=== PATIENT | female | born 1965 | race American Indian/Alaskan Native ===

== ENCOUNTER 2022-02-14 09:16 | Inpatient (IN) | payer SELFPAY ==
[2022-02-14] MEDS ORDERED: SODIUM CHLORIDE 0.9% 1000 ML 1,000 ML ONE ×2 (09:20→14:50)
[2022-02-14] MEDS ORDERED: ADENOSINE 6 MG/2 ML INJ ONE ×2 (09:20→14:50)
[2022-02-14] MEDS ORDERED: SODIUM CHLORIDE 0.9% 1000 ML 1,000 ML IV ONE ×2 (09:27→11:09)
[2022-02-14] MEDS ORDERED: ASPIRIN 81 MG TAB CHEW PO ONE (09:27)
[2022-02-14] MEDS ORDERED: ADENOSINE 6 MG/2 ML INJ IV ONE ×4 (09:27→15:05)
--- NOTE | 2022-02-14 09:27 | Emergency Department Report ---
ED Palpitations [facility] - General Stated Complaint: PALPITATIONS Time Seen by Provider: 02/14/22 09:24 - History of Present Illness Initial Comments: This is a 57-year-old female presents emergency department with complaint of palpitations and fatigue. Patient states she noticed her heart rate was elevated this morning after getting out of the shower. Patient works at a daycare behind the hospital. Patient called 911 and EMS arrived and noted patient was in SVT with a rate above 160. They attempted to have patient Valsalva with no improvement of patient's symptoms. Patient reports that this is happened once before. She has not yet seen cardiology. She also has history of diabetes and was noted to be hyperglycemic in the 300s. - Related Data Allergies Allergy/AdvReac Type Severity Reaction Status Date / Time No Known Allergies Allergy Verified 02/14/22 09:18 ED Review of Systems ROS: Stated complaint: PALPITATIONS Other details as noted in HPI ED Physical Exam - General General appearance: alert, anxious, in distress - Head Head exam: Present: atraumatic, normocephalic - Eye Eye exam: Present: normal appearance - ENT ENT exam: Present: mucous membranes moist - Neck Neck exam: Present: normal inspection - Respiratory Respiratory exam: Present: normal lung sounds bilaterally. Absent: respiratory distress - Cardiovascular Cardiovascular Exam: Present: tachycardia. Absent: systolic murmur, diastolic murmur, rubs, gallop - GI/Abdominal GI/Abdominal exam: Present: soft. Absent: distended, tenderness - Rectal Rectal exam: Present: deferred - Extremities Exam Extremities exam: Present: normal inspection - Back Exam Back exam: Present: normal inspection - Neurological Exam Neurological exam: Present: alert, oriented X3 - Psychiatric Psychiatric exam: Present: normal affect, normal mood - Skin Skin exam: Present: warm, dry, intact, normal color. Absent: rash ED Course Vital Signs 02/14/22 02/14/22 02/14/22 09:29 09:30 09:45 Pulse Rate 160 H 159 H 158 H Respiratory 16 14 12 Rate Blood Pressure 92/63 O2 Sat by Pulse 97 Oximetry 02/14/22 02/14/22 02/14/22 10:00 11:00 12:00 Pulse Rate 156 H 69 62 Respiratory 13 24 13 Rate Blood Pressure 89/61 116/63 116/63 O2 Sat by Pulse 99 96 94 Oximetry 02/14/22 02/14/2202/14/22 13:00 14:46 15:00 Pulse Rate 60 160 H 167 H Respiratory 20 14 15 Rate Blood Pressure 116/63 116/63 109/74 O2 Sat by Pulse 95 Oximetry 02/14/22 02/14/22 15:09 16:00 Pulse Rate 166 H 159 H Respiratory 22 Rate Blood Pressure 109/74 116/63 O2 Sat by Pulse Oximetry - Reevaluation(s) Reevaluation #1: 02/14/22 10:14 We attempted as an adenosine. Patient was given 6 mg initially with out improvement of her heart rate. She was then given 2 subsequent doses of 12 mg each. This still did not improve her heart rate. I discussed cardioversion and with a dose of etomidate and at this time patient does not wish to undergo this. Currently patient's blood pressure is in the 90s over 60s with a MAP of 70. Patient is mentating fine. She has been given IV fluids given concern for dehydration and hyperglycemia. We also attempted carotid massage x2, multiple episodes of Valsalva by patient which has not fixed her heart rate. Given that patient has not yet consented although it was offered for cardioversion plan for reassessment in 10 to 15 minutes after additional IV fluids. Reevaluation #2: 02/14/22 10:34 Patient appears to have converted to sinus rhythm. However patient did have episode of significant bradycardia. Patient bradycardia down into the 50s and was extremely symptomatic. Patient's heart rate has since improved into the 80s to 90s. We are getting an EKG to confirm that she could be in sinus rhythm. Given that a prolonged pauses and the hypotension I do think that patient will require admission for observation and possible cardiology allergy consultation. Reevaluation #3: 02/14/22 13:25 Patient feels improved. Reevaluation #4: 02/14/22 14:53 Patient is noted to be back in SVT. Plan to give a dose of adenosine. If adenosine does not work this time will give a dose of beta-jaun given patient's blood pressure should be able to handle it. If no improvement will discuss again with cardiology. 02/14/22 15:34 I once again discussed once again with Dr. Zaman. He recommends that we start patient on amiodarone. Reevaluation #5: 02/14/22 16:27 Patient is currently in normal sinus rhythm. Patient is admitted to the ICU. She is status post the amiodarone bolus. - Consultations Consultation #1: 02/14/22 14:[address] Zaman who recommended admission with echocardiogram. He will consult. ED Medical Decision Making - Lab Data Result diagrams: 02/14/22 10:08 02/14/22 10:08 - EKG Data -: EKG Interpreted by Me - EKG Data 02/14/22 10:41 SVT is noted with borderline ST elevations. Rate is 161. Time of EKG is 9:25 AM. 02/14/22 13:25 Repeat EKG performed at 11:00 AM shows normal sinus rhythm at a rate of 70. 02/14/22 15:36 Patient once again appears to be in SVT. Patient has EKG performed at 1534 that shows SVT at a rate of 159. - Medical Decision Making Briefly patient is a 57-year-old female with history of SVT who appears to be in SVT currently. Plan for EKG, basic labs including electrolytes, thyroid testing. Plan for chest x-ray. Patient also has history of diabetes and has elevated blood sugar. Will give IV fluids for hyperglycemia but will evaluate further for DKA versus HHS. Critical care attestation.: If time is entered above; I have spent that time in minutes in the direct care of this critically ill patient, excluding procedure time. ED Disposition Clinical Impression: SVT (supraventricular tachycardia) Disposition: ADMITTED INPATIENT Is pt being admited?: Yes Does the pt Need Aspirin: Yes Condition: Critical Referrals: PRIMARY CARE, [Primary Care Provider] - 3-5 Days
[2022-02-14] MEDS ORDERED: ONDANSETRON 4 MG/2 ML INJ ONE (10:24)
--- NOTE | 2022-02-14 10:43 | XRay Report ---
CHEST 1 VIEW 02/14/2022 10:01 AM INDICATION / CLINICAL INFORMATION: Chest Pain. COMPARISON: 06/05/2000 and FINDINGS: SUPPORT DEVICES: None. HEART / MEDIASTINUM: No significant abnormality. LUNGS / PLEURA: Mild increased interstitial prominence with increased pulmonary vascularity within th e lungs No pneumothorax. Signer Name: Jayce Hodges MD Signed: 02/14/2022 10:38 AM Workstation Name: [id number]
[2022-02-14 10:56] LABS: Basophils % (Auto) 0.5 % (0.0-1.8); Eosinophils # (Auto) 0.1 K/mm3 (0.0-0.4); Eosinophils % (Auto) 0.8 % (0.0-4.3); Hematocrit 39.8 % (30.3-42.9); Hemoglobin 13.1 gm/dl (10.1-14.3); Lymphocytes # (Auto) 1.3 K/mm3 (1.2-5.4); Lymphocytes % (Auto) 16.3 % (13.4-35.0); Mean Corpuscular HGB Conc 33 % (30-34); Mean Corpuscular Volume 87 fl (79-97); Monocytes # (Auto) 0.5 K/mm3 (0.0-0.8); Monocytes % (Auto) 6.2 % (0.0-7.3); Platelet Count 142 K/mm3 (140-440); Red Blood Count 4.57 M/mm3 (3.65-5.03); Red Cell Distribution Width 12.6 % (13.2-15.2)
[2022-02-14] MEDS ORDERED: ONDANSETRON 4 MG/2 ML INJ IV ONE (11:09)
[2022-02-14 11:27] LABS: Alanine Aminotransferase 21 units/L (7-56); Albumin 3.4 g/dL (3.9-5); BUN/Creatinine Ratio 21; Blood Urea Nitrogen 17 mg/dL (7-17); Calcium 8.1 mg/dL (8.4-10.2); Hemolysis Index 7
[2022-02-14] MEDS ORDERED: MAGNESIUM SULFATE 2 GM/50 ML BAG IV ONE (11:29)
[2022-02-14] MEDS ORDERED: ASPIRIN 81 MG TAB CHEW ONE (11:59)
[2022-02-14] MEDS ORDERED: METOPROLOL TARTRATE 5 MG/5 ML INJ IV ONE ×2 (15:00→15:06)
[2022-02-14] MEDS ORDERED: oxyCODONE /ACETAMINOPHEN 5-325MG TAB PO PRN (15:57)
[2022-02-14] MEDS ORDERED: HYDROmorphone 0.5 MG/0.5 ML INJ IV PRN (15:57)
[2022-02-14] MEDS ORDERED: ACETAMINOPHEN 325 MG TAB PO PRN (15:57)
--- NOTE | 2022-02-14 15:57 | History and Physical Report ---
History of Present Illness Chief complaint: My heart is just pounding History of present illness: 57 YO Female with SVT, Medication Noncompliance, HTN, Obesity, DM, Metabolic Syndrome presents ED for evaluation. Patient reports "my heart is pounding". Patient states that she has experienced a rapid heartbeat that began this morning after getting out of the shower. Patient knowledges weakness, decreased exercise tolerance, dyspnea on exertion as well as dyspnea at rest. EMS was notified and upon arrival the patient was found to be in distress with EKG findings revealing supraventricular tachycardia with a heart rate above 160. A Valsalva maneuver was attempted as well as medical cardioversion with adenosine without success. The patient was subsequent transported to [facility] for further care and evaluation of the aforementioned symptoms. The patient was seen and evaluated in the emergency department. All lab and imaging studies reviewed. Patient found to have supraventricular tachycardia as well as clinical symptoms consistent with CHF decompensation. The patient was treated with repeat medical cardioversion in the emergency department without success. Cardiology team consulted. Patient initiated on amiodarone and admitted to ICU due to increased risk of worsening symptoms and for medical stabilization. Patient denies fever, chills, productive cough, skin rash, recent contact, known exposu re to COVID-19. No prior admission for review. No medication listed at time of admission for reconciliation. Advanced care planning conducted in ED. Past History Past Medical History: arrhythmia, diabetes, hypertension, other (See HPI) Past Surgical History: No surgical history, Other (Reviewed) Social history: , lives with family. denies: smoking, alcohol abuse, prescription drug abuse Family history: diabetes, hypertension Medications and Allergies Allergies Allergy/AdvReac Type Severity Reaction Status Date / Time No Known Allergies Allergy Verified 02/14/22 09:18 Active Meds: Active Medications Amiodarone HCl 300 mg/ (Dextrose) 100 mls @ 300 mls/hr IV ONCE ONE Stop: 02/14/22 16:19 Amiodarone HCl 900 mg/ (Dextrose) 500 mls @ 33.333 mls/hr IV DIRECT CASSI; Protocol Review of Systems Constitutional: weakness, no weight loss, no weight gain, no fever, no chills Ears, nose, mouth and throat: no ear pain, no ear discharge, no decreased hearing, no nose pain, no nasal congestion, no sinus pressure Breasts: no change in shape, no swelling, no mass Cardiovascular: palpitations, dyspnea on exertion, decreased exercise tolerance, no chest pain Respiratory: no cough, no cough with sputum, no excessive sputum, no hemoptysis Gastrointestinal: no abdominal pain, no vomiting, no diarrhea Genitourinary Female: no pelvic pain, no flank pain, no dysuria, no urinary frequency, no urgency, no stress incontinence Rectal: no pain, no incontinence, no bleeding Musculoskeletal: no neck stiffness, no neck pain, no arm numbness/tingling, no low back pain, no leg numbness/tingling Integumentary: no rash, no pruritis, no redness, no wounds, no jaundice Neurological: no head injury, no transient paralysis, no weakness, no parathesias, no numbness, no seizures Psychiatric: no anxiety, no change in sleep habits, no sleep disturbances, no insomnia Endocrine: no cold intolerance, no heat intolerance, no polyphagia, no excessive thirst, no polyuria Hematologic/Lymphatic: no easy bruising, no lymphadenopathy Allergic/Immunologic: no allergic rhinitis, no wheezing, no persistent infections, no anaphylaxis Exam - Constitutional Vitals: Temp Pulse Resp BP Pulse Ox 166 H 13 109/74 94 02/14/22 15:09 02/14/22 12:00 02/14/22 15:09 02/14/22 12:00 General appearance: Present: mild distress, obese - EENT Eyes: Present: PERRL ENT: hearing intact, clear oral mucosa - Neck Neck: Present: supple, normal ROM - Respiratory Respiratory effort: normal Respiratory: bilateral: diminished - Cardiovascular Rhythm: irregularly irregular Heart Sounds: Present: S1 & S2. Absent: rub, click - Extremities Extremities: pulses symmetrical, No edema Peripheral Pulses: within normal limits - Abdominal General gastrointestinal: Present: soft, non-tender, non-distended, normal bowel sounds Female genitourinary: Present: normal - Integumentary Integumentary: Present: clear, warm, dry - Musculoskeletal Musculoskeletal: gait normal, strength equal bilaterally - Psychiatric Psychiatric: appropriate mood/affect, intact judgment & insight - Neurologic Neurologic: CNII-XII intact, moves all extremities HEART Score - HEART Score Troponin: Troponin T < 0.010 ng/mL (0.00-0.029) 02/14/22 13:09 Results - Labs CBC & Chem 7: 02/14/22 10:08 07/05/22 10:08 Labs: Abnormal lab results 02/14/22 02/14/22 02/14/22 Range/Units 10:08 10:08 10:08 RDW 12.6 L (13.2-15.2) % Seg Neutrophils % 76.2 H (40.0-70.0) % VBG pH 7.275 L (7.320-7.420) Glucose 364 H (65-100) mg/dL Calcium 8.1 L (8.4-10.2) mg/dL Magnesium (1.7-2.3) mg/dL Total Protein 6.2 L (6.3-8.2) g/dL Albumin 3.4 L (3.9-5) g/dL 02/14/22 Range/Units 10:08 RDW (13.2-15.2) % Seg Neutrophils % (40.0-70.0) % VBG pH (7.320-7.420) Glucose (65-100) mg/dL Calcium (8.4-10.2) mg/dL Magnesium 1.60 L (1.7-2.3) mg/dL Total Protein (6.3-8.2) g/dL Albumin (3.9-5) g/dL Assessment and Plan - Patient Problems (1) SVT (supraventricular tachycardia) Current Visit: Yes Status: Acute Plan to address problem: Patient treated with medical cardioversion in the emergency department with out improvement. Patient heart rate remained in the 160s. Cardiology team consulted. Patient initiated on amiodarone drip and admitted to ICU for medical stabilization. Titrate to heart rate less than 1 The high probability of a clinically significant, sudden or life threatening deterioration of the [cardiac, pulmonary] system(s) required my full and direct attention, intervention and personal management. The aggregate critical care time was [65] minutes. This time is in addition to time spent performing reported procedures but includes the following: [x] Data Review and interpretation [x] Patient assessment and monitoring of vital signs [x] Documentation [x] Medication orders and [id number] bpm. Echocardiogram ordered and pending at time of admission. (2) Diastolic CHF Current Visit: Yes Status: Acute Qualifiers: Heart failure chronicity: acute Qualified Code(s): I50.31 - Acute diastolic (congestive) heart failure Plan to address problem: Strict I's and O, monitor urine output every shift, daily weight, afterload reduction, echocardiogram ordered and pending at time of admission, blood pressure control. Thyroid panel, magnesium level. Cardiology team consulted. (3) Diabetes Current Visit: Yes Status: Acute Plan to address problem: Consistent carbohydrate diet, Accu-Chek, insulin protocol, hypoglycemia protocol. (4) HTN (hypertension) Current Visit: Yes Status: Acute Qualifiers: Hypertension type: primary hypertension Qualified Code(s): I10 - Essential (primary) hypertension Plan to address problem: Monitor blood pressure every shift, continue medical management. Blood pressure monitoring as per nursing care protocol. (5) Obesity hypoventilation syndrome Current Visit: Yes Status: Acute Plan to address problem: Balanced diet, increase physical activity discharge, outpatient pulmonary follow-up for sleep study. (6) Metabolic syndrome Current Visit: Yes Status: Acute Plan to address problem: Patient counseled regarding balanced diet, weight reduction, increase physical activity discharge, low-cholesterol diet. (7) DVT prophylaxis Current Visit: Yes Status: Acute Plan to address problem: SCD to bilateral lower extremities while in bed (8) Advance care planning Current Visit: Yes Status: Acute Plan to address problem: Disease education data, care plan discussed, diagnosis discussed, prognosis discussed, patient is full code. Patient knowledges understanding agreement with care plan, +30 minutes. (9) Preventative health care Current Visit: Yes Status: Acute Plan to address problem: Patient counseled regarding meal planning, weight reduction, increased physical activity discharge, outpatient follow-up with primary care physician regarding all age and risk factor appropriate screening test. Patient instructed to follow-up with echocardiography radiology technologist for routine monitoring. +30 minutes.
[2022-02-14] MEDS ORDERED: DEXTROSE 5% IV ONE (16:00)
[2022-02-14] MEDS ORDERED: AMIODARONE 900 MG in DEXTROSE 5% IN WATER 482 ML IV SCH (16:00)
[2022-02-14] MEDS ORDERED: AMIODARONE IV ONE (16:00)
[2022-02-14] MEDS ORDERED: WATER IV ONE (16:00)
--- NOTE | 2022-02-14 18:27 | Consultation ---
History of Present Illness Consult date: 02/14/22 Consult reason: tachycardia History of present illness: The patient is a 57-year-old woman who presented to the emergency room with palpitations, ECG was consistent with an AV node reentry tachycardia at 160. She apparently failed treatment with 6 to 12 mg of adenosine, but during her emergency room course spontaneously reverted to sinus rhythm. While she was being evaluated and assessed for hospital admission, she again developed a recurrent of the SVT, which again reportedly did not respond to adenosine therapy, we recommended administration of intravenous amiodarone. The patient is currently in stable sinus rhythm, asymptomatic in the emergency room on amiodarone drip. The twelve-lead EKG in sinus rhythm is normal, with early repolarization changes, no acute ischemic changes. Patient gives a history of recurrent SVT, starting in 2003. Her most recent episode was 2 months ago, she was treated at [facility] in [place], and was subsequently discharged on metoprolol. She admits to noncompliant follo w-up with her airplane electrical repairer, and also reports that in the 2 days prior to this event, has been noncompliant with metoprolol. Laboratory values show negative troponin levels, but markedly elevated random glucose of 364. Chest x-ray shows normal-sized cardiac silhouette and clear lungs. Past History Past Medical History: other (Supraventricular tachycardia) Medications and Allergies Allergies Allergy/AdvReac Type Severity Reaction Status Date / Time No Known Allergies Allergy Verified 02/14/22 09:18 Active Meds: Active Medications Acetaminophen (Acetaminophen 325 Mg Tab) 650 mg PO Q6H PRN PRN Reason: Pain MILD(1-3)/Fever >100.5/GRAMAJO Hydromorphone HCl (Hydromorphone 0.5 Mg/0.5 Ml Inj) 0.5 mg IV Q13H PRN PRN Reason: Pain , Severe (7-10) Amiodarone HCl 900 mg/ (Dextrose) 500 mls @ 33.333 mls/hr IV DIRECT CASSI; Protocol Oxycodone/Acetaminophen (Oxycodone /Acetaminophen 5-325mg Tab) 1 tab PO Q6H PRN PRN Reason: Pain, Moderate (4-6) Sodium Chloride (Sodium Chloride 0.9% 10 Ml Flush Syringe) 10 ml IV BID CASSI Sodium Chloride (Sodium Chloride 0.9% 10 Ml Flush Syringe) 10 ml IV PRN PRN PRN Reason: LINE FLUSH Review of Systems Cardiovascular: palpitations, rapid/irregular heart beat, shortness of breath, no chest pain, no orthopnea, no edema, no syncope, no lightheadedness Physical Examination Vital Signs Pulse Resp Pulse Ox 160 H 16 97 02/14/22 09:29 02/14/22 09:29 02/14/22 09:29 General appearance: no acute distress HEENT: Positive: PERRL Neck: Positive: neck supple Cardiac: Positive: Reg Rate and Rhythm Lungs: Positive: clear to auscultation Neuro: Positive: Grossly Intact Abdomen: Positive: Soft Female genitourinary: deferred Skin: Positive: Clear Extremities: Absent: edema Results 02/14/22 10:08 02/14/22 10:08 Cardiac Enzymes 02/14/22 Range/Units 10:08 AST 24 (5-40) units/L CBC 02/14/22 Range/Units 10:08 WBC 8.0 (4.5-11.0) K/mm3 RBC 4.57 (3.65-5.03) M/mm3 Hgb 13.1 (10.1-14.3) gm/dl Hct 39.8 (30.3-42.9) % Plt Count 142 (140-440) K/mm3 Lymph # (Auto) 1.3 (1.2-5.4) K/mm3 [place] # (Auto) 0.5 (0.0-0.8) K/mm3 Eos # (Auto) 0.1 (0.0-0.4) K/mm3 Baso # (Auto) 0.0 (0.0-0.1) K/mm3 Comprehensive Metabolic Panel 02/14/22 Range/Units 10:08 Sodium 137 (137-145) mmol/L Potassium 4.9 (3.6-5.0) mmol/L Chloride 104.1 (98-107) mmol/L Carbon Dioxide 24 (22-30) mmol/L BUN 17 (7-17) mg/dL Creatinine 0.8 (0.6-1.2) mg/dL Glucose 364 H (65-100) mg/dL Calcium 8.1 L (8.4-10.2) mg/dL AST 24 (5-40) units/L ALT 21 (7-56) units/L Alkaline Phosphatase 75 (35-129) units/L Total Protein 6.2 L (6.3-8.2) g/dL Albumin 3.4 L (3.9-5) g/dL EKG interpretations - Telemetry EKG Rhythm: SVT Assessment and Plan - Patient Problems (1) SVT (supraventricular tachycardia) Current Visit: Yes Status: Acute Plan to address problem: Patient presents with recurrence of AV node reentry tachycardia. Due to reported failure of adenosine administered in the emergency room, patient is currently on amiodarone, stable sinus rhythm. Sinus rhythm EKG is normal. We will restart metoprolol, and plan on discharge tomorrow on combination of metoprolol and low-dose amiodarone, with outpatient follow-up by her primary airplane electrical repairer. Patient is aware of alternative treatments such as SVT ablation that can be considered electively in the setting of failed medical therapy.
[2022-02-14] MEDS ORDERED: DEXTROSE 50% IN WATER (25GM) 50 ML SYRINGE IV PRN (18:46)
[2022-02-14 19:24] LABS: Free T4 (Free Thyroxine) 1.22 ng/dL (0.76-1.46)
[2022-02-15 04:44] LABS: Basophils % (Auto) 0.5 % (0.0-1.8); Eosinophils # (Auto) 0.2 K/mm3 (0.0-0.4); Eosinophils % (Auto) 2.2 % (0.0-4.3); Hemoglobin 12.4 gm/dl (10.1-14.3); Lymphocytes # (Auto) 2.1 K/mm3 (1.2-5.4); Lymphocytes % (Auto) 30.4 % (13.4-35.0); Mean Corpuscular HGB Conc 33 % (30-34); Mean Corpuscular Volume 86 fl (79-97); Monocytes # (Auto) 0.7 K/mm3 (0.0-0.8); Monocytes % (Auto) 9.9 % (0.0-7.3); Platelet Count 140 K/mm3 (140-440); Red Blood Count 4.32 M/mm3 (3.65-5.03); Red Cell Distribution Width 12.8 % (13.2-15.2)
[2022-02-15 05:16] LABS: Alanine Aminotransferase 29 units/L (7-56); Albumin 3.4 g/dL (3.9-5); BUN/Creatinine Ratio 19; Blood Urea Nitrogen 15 mg/dL (7-17); Calcium 8.6 mg/dL (8.4-10.2); Hemolysis Index 12
[2022-02-15] MEDS ORDERED: METOPROLOL TARTRATE 25 MG TAB PO SCH (12:00)
[2022-02-15] MEDS: INSULIN LISPRO 100 UNIT/ML SUB-Q SCH ×4 (12:19→22:24)
--- NOTE | 2022-02-15 13:14 | Progress Note ---
Assessment and Plan - Patient Problems (1) SVT (supraventricular tachycardia) Current Visit: Yes Status: Acute Plan to address problem: Patient presents with recurrence of AV node reentry tachycardia. Due to reported failure of adenosine administered in the emergency room, patient is currently on amiodarone, stable sinus rhythm. Sinus rhythm EKG is normal. Echocardiogram shows normal left ventricular systolic function, ejection fraction 55%. We will restart metoprolol, and plan on discharge tomorrow on combination of metoprolol and low-dose amiodarone, with outpatient follow-up by her primary high school social studies teacher. Patient is aware of alternative treatments such as SVT ablation that can be considered electively in the setting of failed medical therapy. Subjective Date of service: 02/15/22 Principal diagnosis: SVT Interval history: Patient is comfortable, no acute distress, no cardiac complaints. Stable sinus rhythm. Objective Vital Signs Temp Pulse Resp BP BP Pulse Ox 02/15/22 12:10 98.5 F 64 18 105/57 97 02/15/22 08:10 97 02/15/22 08:00 58 L 02/15/22 07:38 97.7 F 63 18 94/52 96 02/15/22 04:52 97.6 F 58 L 18 116/65 99 02/15/22 01:38 97 02/15/22 01:10 58 L 19 84/48 95 02/15/22 01:00 57 L 20 83/40 95 02/15/22 00:50 58 L 19 83/40 96 02/15/22 00:47 98.8 F 56 L 20 108/70 02/15/22 00:40 57 L 20 77/38 94 02/15/22 00:38 58 L 20 77/38 95 02/15/22 00:00 59 L 20 89/46 94 02/14/22 23:00 59 L 20 90/57 94 02/14/22 22:00 59 L 21 96/61 93 02/14/22 21:00 57 L 19 108/75 94 02/14/22 20:00 59 L 18 90/59 02/14/22 19:00 61 20 90/59 02/14/22 18:00 62 17 90/59 02/14/22 17:00 65 18 90/59 02/14/22 16:00 159 H 22 116/63 02/14/22 15:09 166 H 109/74 02/14/22 15:00 167 H 15 109/74 02/14/22 14:46 160 H 14 116/63 - Physical Examination General: Appears Well, No Apparent Distress HEENT: Positive: PERRL Neck: Positive: neck supple Cardiac: Positive: Reg Rate and Rhythm Lungs: Positive: clear to auscultation Neuro: Positive: Grossly Intact Abdomen: Positive: Soft Skin: Positive: Clear Extremities: Absent: edema - Labs and Meds Cardiac Enzymes 02/15/22 Range/Units 04:05 AST 27 (5-40) units/L CBC 02/15/22 Range/Units 04:05 WBC 6.9 (4.5-11.0) K/mm3 RBC 4.32 (3.65-5.03) M/mm3 Hgb 12.4 (10.1-14.3) gm/dl Hct 37.0 (30.3-42.9) % Plt Count 140 (140-440) K/mm3 Lymph # (Auto) 2.1 (1.2-5.4) K/mm3 [place] # (Auto) 0.7 (0.0-0.8) K/mm3 Eos # (Auto) 0.2 (0.0-0.4) K/mm3 Baso # (Auto) 0.0 (0.0-0.1) K/mm3 Comprehensive Metabolic Panel 02/15/22 Range/Units 04:05 Sodium 138 (137-145) mmol/L Potassium 4.2 (3.6-5.0) mmol/L Chloride 104.9 (98-107) mmol/L Carbon Dioxide 24 (22-30) mmol/L BUN 15 (7-17) mg/dL Creatinine 0.8 (0.6-1.2) mg/dL Glucose 241 H (65-100) mg/dL Calcium 8.6 (8.4-10.2) mg/dL AST 27 (5-40) units/L ALT 29 (7-56) units/L Alkaline Phosphatase 77 (35-129) units/L Total Protein 6.3 (6.3-8.2) g/dL Albumin 3.4 L (3.9-5) g/dL
--- NOTE | 2022-02-15 13:32 | Consultation ---
History of Present Illness Consult date: 02/15/22 History of present illness: 57 YO Female with SVT, Medication Noncompliance, HTN, Obesity, DM, Metabolic Syndrome presents ED for evaluation. Patient reports "my heart is pounding". Patient states that she has experienced a rapid heartbeat that began this morning after getting out of the shower. Patient knowledges weakness, decreased exercise tolerance, dyspnea on exertion as well as dyspnea at rest. EMS was notified and upon arrival the patient was found to be in distress with EKG findings revealing supraventricular tachycardia with a heart rate above 160. A Valsalva maneuver was attempted as well as medical cardioversion with adenosine without success. The patient was subsequent transported to [facility] for further care and evaluation of the aforementioned symptoms. The patient was seen and evaluated in the emergency department. All lab and imaging studies reviewed. Patient found to have supraventricular tachycardia as well as clinical symptoms consistent with CHF decompensation. The patient was treated with repeat medical cardioversion in the emergency department without success. Cardiology team consulted. Patient initiated on amiodarone and admitted to ICU due to increased risk of worsening symptoms and for medical stabilization. Patient denies fever, chills, productive cough, skin rash, recent contact, known exposure to COVID-19. No prior admission for review. No medication listed at time of admission for reconciliation. Advanced care planning conducted in ED. Past History Past Medical History: arrhythmia, diabetes, hypertension, other (See HPI) Past Surgical History: No surgical history, Other (Reviewed) Social history: , lives with family. denies: smoking, alcohol abuse, prescription drug abuse Family history: diabetes, hypertension Medications and Allergies Allergies Allergy/AdvReac Type Severity Reaction Status Date / Time No Known Allergies Allergy Verified 02/14/22 09:18 Home Medications Medication Instructions Recorded Confirmed Last Taken Type Insulin Glargine,Hum.rec.anlog 100 unit SQ QHS 30 Days #900 units 02/15/22 Unknown Rx [Basaglar Kwikpen U-100] Pen Needle, Diabetic [Comfort 1 each MC QHS 30 Days #100 each 02/15/22 Unknown Rx Touch Pen Needle] Metoprolol [Lopressor TAB] 12.5 mg PO BID 30 Days #30 tablet 02/16/22 Unknown Rx Active Meds: Active Medications Acetaminophen (Acetaminophen 325 Mg Tab) 650 mg PO Q6H PRN PRN Reason: Pain MILD(1-3)/Fever >100.5/GRAMAJO Dextrose (Dextrose 50% In Water (25gm) 50 Ml Syringe) 50 ml IV Q30MIN PRN; Pro tocol PRN Reason: Hypoglycemia Hydromorphone HCl (Hydromorphone 0.5 Mg/0.5 Ml Inj) 0.5 mg IV Q13H PRN PRN Reason: Pain , Severe (7-10) Insulin Human Lispro (Insulin Lispro 100 Unit/Ml) 0 unit SUB-Q ACHS [facility]; Protocol Last Admin: 02/15/22 12:19 Dose: 3 unit Metoprolol Tartrate (Metoprolol Tartrate 25 Mg Tab) 25 mg PO BID [facility] Oxycodone/Acetaminophen (Oxycodone /Acetaminophen 5-325mg Tab) 1 tab PO Q6H PRN PRN Reason: Pain, Moderate (4-6) Sodium Chloride (Sodium Chloride 0.9% 10 Ml Flush Syringe) 10 ml IV BID [facility] Last Admin: 02/15/22 12:21 Dose: 10 ml Sodium Chloride (Sodium Chloride 0.9% 10 Ml Flush Syringe) 10 ml IV PRN PRN PRN Reason: LINE FLUSH Review of Systems All systems: negative Physical Examination Vital signs: Vital Signs Pulse Resp Pulse Ox 160 H 16 97 02/14/22 09:29 02/14/22 09:29 02/14/22 09:29 Results - Laboratory Findings CBC and BMP: 02/15/22 04:05 02/15/22 04:05 Abnormal lab findings: Abnormal Labs 02/14/22 02/14/22 02/14/22 10:08 10:08 10:[address] [place] % (Auto) Seg Neutrophils % 76.2 H VBG pH 7.275 L Glucose 364 H POC Glucose Calcium 8.1 L Magnesium Total Protein 6.2 L Albumin 3.4 L 02/14/22 02/15/22 02/15/22 10:08 04:05 04:[address] [place] % (Auto) 9.9 H Seg Neutrophils % VBG pH Glucose 241 H POC Glucose Calcium Magnesium 1.60 L Total Protein Albumin 3.4 L 02/15/22 02/15/22 07:40 11:[address] [place] % (Auto) Seg Neutrophils % VBG pH Glucose POC Glucose 180 H 213 H Calcium Magnesium Total Protein Albumin - Diagnostic Findings Chest x-ray: report reviewed, image reviewed Additional studies: HEST 1 VIEW 02/14/2022 10:01 AM INDICATION / CLINICAL INFORMATION: Chest Pain. COMPARISON: 06/05/2000 and FINDINGS: SUPPORT DEVICES: None. HEART / MEDIASTINUM: No significant abnormality. LUNGS / PLEURA: Mild increased interstitial prominence with increased pulmonary vascularity within the lungs No pneumothorax. Assessment and Plan - Patient Problems (1) Diabetes Current Visit: Yes Status: Acute (2) Diastolic CHF Current Visit: Yes Status: Acute Qualifiers: Heart failure chronicity: acute Qualified Code(s): I50.31 - Acute diastolic (congestive) heart failure (3) HTN (hypertension) Current Visit: Yes Status: Acute Qualifiers: Hypertension type: primary hypertension Qualified Code(s): I10 - Essential (primary) hypertension (4) Obesity hypoventilation syndrome Current Visit: Yes Status: Acute (5) SVT (supraventricular tachycardia) Current Visit: Yes Status: Acute
--- NOTE | 2022-02-15 16:20 | Progress Note ---
Assessment and Plan Assessment and plan: #Supraventricular tachycardia -Continue telemetry -Echocardiogram ordered, results pending -We will restart metoprolol at home dose -Cardiology following, assistance appreciated #Insulin dependent type II diabetes -Patient takes Basaglar 20 to 30 units nightly -Will give Lantus 15 units nightly while inpatient -Consistent carbohydrate diet, Accu-Chek + SSI, hypoglycemia protocol -Goal glucose [id number] #HTN (hypertension) -continue metoprolol -monitor blood pressure every shift #Hypomagnesemia -We will replete monitor #Obesity - Counseled patient on the importance of weight loss, incorporating exercise, and dietary changes (lean meats, fresh fruits and vegetables, and water intake). Patient expresses understanding. - Time: +15 mins #Advance care planning -Disease education data, care plan discussed, diagnosis discussed, prognosis discussed, patient is full code. Patient knowledges understanding agreement with care plan, +30 minutes. History Interval history: No acute vents overnight. Patient reports feeling better than admission. No longer having palpitations. She denies current chest pain or shortness of breath. She has no complaints at this time. Hospitalist Physical - Physical exam Narrative exam: GENERAL: Well-developed well-nourished. In no acute distress. HEENT: Normocephalic. Atraumatic. NECK: Supple. CHEST/LUNGS: CTAB on room air HEART/CARDIOVASCULAR: RRR. No murmur, rubs or gallops appreciated. ABDOMEN: +BS. NT/ND. SKIN: No rashes noted. NEURO: No focal motor deficit. Follows all commands. MUSCULOSKELETAL: No joint effusion EXTREMITIES: No cyanosis, clubbing or edema. PSYCH: Cooperative. - Constitutional Vitals: Temp Pulse Resp BP Pulse Ox 98.5 F 64 18 105/57 97 02/15/22 12:10 02/15/22 12:10 02/15/22 12:10 02/15/22 12:10 02/15/22 12:10 General appearance: Present: mild distress, obese HEART Score - HEART Score Troponin: Troponin T < 0.010 ng/mL (0.00-0.029) 02/14/22 13:09 Results - Labs CBC & Chem 7: 02/15/22 04:05 02/15/22 04:05 Labs: Laboratory Last Values WBC 6.9 K/mm3 (4.5-11.0) 02/15/22 04:05 RBC 4.32 M/mm3 (3.65-5.03) 02/15/22 04:05 Hgb 12.4 gm/dl (10.1-14.3) 02/15/22 04:05 Hct 37.0 % (30.3-42.9) 02/15/22 04:05 MCV 86 fl (79-97) 02/15/22 04:05 MCH 29 pg (28-32) 02/15/22 04:05 MCHC 33 % (30-34) 02/15/22 04:05 RDW 12.8 % (13.2-15.2) L 02/15/22 04:05 Plt Count 140 K/mm3 (140-440) 02/15/22 04:05 Lymph % (Auto) 30.4 % (13.4-35.0) 02/15/22 04:05 [place] % (Auto) 9.9 % (0.0-7.3) H 02/15/22 04:05 Eos % (Auto) 2.2 % (0.0-4.3) 02/15/22 04:05 Baso % (Auto) 0.5 % (0.0-1.8) 02/15/22 04:05 Lymph # (Auto) 2.1 K/mm3 (1.2-5.4) 02/15/22 04:05 [place] # (Auto) 0.7 K/mm3 (0.0-0.8) 02/15/22 04:05 Eos # (Auto) 0.2 K/mm3 (0.0-0.4) 02/15/22 04:05 Baso # (Auto) 0.0 K/mm3 (0.0-0.1) 02/15/22 04:05 Seg Neutrophils % 57.0 % (40.0-70.0) 02/15/22 04:05 Seg Neutrophils # 3.9 K/mm3 (1.8-7.7) 02/15/22 04:05 VBG pH 7.275 (7.320-7.420) L 02/14/22 10:08 Sodium 138 mmol/L (137-145) 02/15/22 04:05 Potassium 4.2 mmol/L (3.6-5.0) 02/15/22 04:05 Chloride 104.9 mmol/L (98-107) 02/15/22 04:05 Carbon Dioxide 24 mmol/L (22-30) 02/15/22 04:05 Anion Gap 13 mmol/L 02/15/22 04:05 BUN 15 mg/dL (7-17) 02/15/22 04:05 Creatinine 0.8 mg/dL (0.6-1.2) 02/15/22 04:05 Estimated GFR > 60 ml/min 02/15/22 04:05 BUN/Creatinine Ratio 19 % 02/15/22 04:05 Glucose 241 mg/dL (65-100) H 02/15/22 04:05 POC Glucose 213 mg/dL (70-105) H 02/15/22 11:35 Ketones Quantitative Negative (Negative) 02/14/22 10:08 Calcium 8.6 mg/dL (8.4-10.2) 02/15/22 04:05 Magnesium 2.20 mg/dL (1.7-2.3) 02/14/22 18:28 Total Bilirubin 0.20 mg/dL (0.1-1.2) 02/15/22 04:05 AST 27 units/L (5-40) 02/15/22 04:05 ALT 29 units/L (7-56) 02/15/22 04:05 Alkaline Phosphatase 77 units/L (35-129) 02/15/22 04:05 Troponin T < 0.010 ng/mL (0.00-0.029) 02/14/22 13:09 NT-Pro-B Natriuret Pep 128.9 pg/mL (0-900) 02/14/22 10:08 Total Protein 6.3 g/dL (6.3-8.2) 02/15/22 04:05 Albumin 3.4 g/dL (3.9-5) L 02/15/22 04:05 Albumin/Globulin Ratio 1.2 % 02/15/22 04:05 TSH 0.430 mlU/mL (0.270-4.200) 02/14/22 18:28 Free T4 1.22 ng/dL (0.76-1.46) 02/14/22 18:28 [place]/IV: Voiding Method Toilet Active Medications - Current Medications Current Medications: Generic Name Dose Route Start Last Admin Trade Name Freq PRN Reason Stop Dose Admin Acetaminophen 650 mg 02/14/22 15:57 Acetaminophen 325 Mg Tab PO Q6H PRN Pain MILD(1-3)/Fever >100.5/GRAMAJO Dextrose 50 ml 02/14/22 18:46 Dextrose 50% In Water (25gm) 50 Ml Syringe IV Q30MIN PRN Hypoglycemia Protocol Hydromorphone HCl 0.5 mg 02/14/22 15:57 Hydromorphone 0.5 Mg/0.5 Ml Inj IV Q13H PRN Pain , Severe (7-10) Insulin Glargine 15 units 02/15/22 22:00 Insulin Glargine 100 Units/Ml SUB-Q QHS [facility] Insulin Human Lispro 0 unit 02/15/22 11:30 02/15/22 12:19 Insulin Lispro 100 Unit/Ml SUB-Q 3 unit ACHS [facility] Administration Protocol Metoprolol Tartrate 25 mg 02/15/22 14:00 Metoprolol Tartrate 25 Mg Tab PO BID [facility] Oxycodone/Acetaminophen 1 tab 02/14/22 15:57 Oxycodone /Acetaminophen 5-325mg Tab PO Q6H PRN Pain, Moderate (4-6) Sodium Chloride 10 ml 02/14/22 22:00 02/15/22 12:21 Sodium Chloride 0.9% 10 Ml Flush Syringe IV 10 ml BID [facility] Administration Sodium Chloride 10 ml 02/14/22 15:57 Sodium Chloride 0.9% 10 Ml Flush Syringe IV PRN PRN LINE FLUSH
[2022-02-15] MEDS: METOPROLOL TARTRATE 25 MG TAB PO SCH ×2 (16:48→22:31)
--- NOTE | 2022-02-15 17:45 | Electrocardiograph Report ---
[facility] Test Date: 2022-02-14 Test Time: 09:25:29 Pat Name: NIDHI VALLADARES Department: Room: A466 Gender: F Jacquard [place]: TV : 1965 Requested By: ANANTH IBARRA Order Number: [id number] Reading MD: Stan Zaman Measurements Intervals [place] Rate: 161 P: 0 AR: QRS: 6 QRSD: 72 T: 8 QT: 284 QTc: 466 Interpretive Statements Supraventricular tachycardia Nonspecific lateral ST abnormality No previous ECG available for comparison Electronically Signed On 02-15-2022 17:45:20 EDT by Stan Zaman
--- NOTE | 2022-02-15 17:47 | Electrocardiograph Report ---
[facility] Test Date: 2022-02-14 Test Time: 11:00:34 Pat Name: NIDHI VALLADARES Department: Room: A466 Gender: F Day Care Home Mother: GP : 1965 Requested By: ANANTH IBARRA Order Number: [id number] Reading MD: Stan Zaman Measurements Intervals [place] Rate: 70 P: 57 RI: 127 QRS: 12 QRSD: 85 T: 2 QT: 396 QTc: 426 Interpretive Statements Sinus rhythm Early repolarization ST changes Compared to ECG 02/14/2022 09:25:29 Sinus rhythm has replaced SVT Electronically Signed On 02-15-2022 17:47:16 EDT by Stan Zaman
--- NOTE | 2022-02-15 17:50 | Electrocardiograph Report ---
[facility] Test Date: 2022-02-14 Test Time: 15:34:13 Pat Name: NIDHI VALLADARES Department: Room: A452 1 Gender: F Nurse Administrator: JUSTA : 1965 Requested By: ANANTH IBARRA Order Number: [id number] Reading MD: Stan Zaman Measurements Intervals [place] Rate: 159 P: 0 [place]: QRS: 7 QRSD: 71 T: -11 QT: 278 QTc: 453 Interpretive Statements Supraventricular tachycardia Compared to ECG 02/14/2022 11:00:34 SVT has replaced sinus rhythm Electronically Signed On 02-15-2022 17:49:55 EDT by Stna Zaman
[2022-02-15] MEDS ORDERED: INSULIN GLARGINE 100 UNITS/ML SUB-Q SCH (22:00)
[2022-02-16] MEDS: INSULIN LISPRO 100 UNIT/ML SUB-Q SCH ×3 (07:45→16:40)
[2022-02-16] MEDS: METOPROLOL TARTRATE 25 MG TAB PO SCH (10:32)
--- NOTE | 2022-02-16 11:20 | Progress Note ---
Assessment and Plan - Patient Problems (1) SVT (supraventricular tachycardia) Current Visit: Yes Status: Acute Plan to address problem: Patient presented with AV node reentry tachycardia. Echocardiogram shows normal left ventricular systolic function, ejection fraction 55%. Due to borderline heart rate of 60, we will treat her with low-dose metoprolol as sole agent, stop amiodarone. She is otherwise stable for discharge today, follow-up with cardiology in 7 to 10 days. Subjective Date of service: 02/16/22 Principal diagnosis: SVT Interval history: Patient looks and feels well, ambulating with no symptoms. Blood pressure today is 94 systolic, and heart rate is 60, sinus rhythm. There have been no further recurrent episodes of SVT. Objective Vital Signs Temp Pulse Resp BP Pulse Ox 02/16/22 10:29 97 02/16/22 08:00 98.5 F 56 L 97 02/16/22 07:57 92/49 02/16/22 04:12 97.7 F 57 L 16 123/59 100 02/15/22 23:25 98.3 F 69 16 114/58 93 02/15/22 22:31 66 118/60 02/15/22 22:00 97 02/15/22 19:22 97.8 F 66 16 118/60 98 02/15/22 16:35 97.5 F L 86 18 95/51 94 02/15/22 12:10 98.5 F 64 18 105/57 97 - Physical Examination General: Appears Well, No Apparent Distress HEENT: Positive: PERRL Neck: Positive: neck supple Cardiac: Positive: Reg Rate and Rhythm Lungs: Positive: clear to auscultation Neuro: Positive: Grossly Intact Abdomen: Positive: Soft Skin: Positive: Clear Extremities: Absent: edema
--- NOTE | 2022-02-16 12:43 | Discharge Summary ---
Providers - Providers Date of Admission: 02/14/22 15:57 Date of discharge: 02/16/22 Attending physician: RASHIDA ROSE MD 02/14/22 16:05 Consult to Physician [CONS] Stat Comment: Consulting Provider: JACKSON BENITO Physician Instructions: Reason For Exam: amiodarone drip due to svt Primary care physician: STRATEGIC SOURCING MANAGER Hospitalization Reason for admission: SVT Condition: Stable Hospital course: Patient is a 57-year-old female with history of SVT, hypertension and diabetes who presented with palpitations. She was found to be in SVT. Manipulation maneuvers and medical cardioversion was unsuccessful. Amiodarone drip was started and patient was admitted for further care. Cardiology was consulted and patient was transitioned from amiodarone to metoprolol. Heart rate improved to normal sinus rhythm. Echocardiogram showed normal ejection fraction, mild mitral, tricuspid and pulmonic regurgitation. Once stable, patient was discharged with instructions to follow-up with cardiology. Disposition: 01 HOME / SELF CARE / HOMELESS Final Discharge Diagnosis (Prints w/discharge instructions): Supraventricular tachycardia. Insulin-dependent type 2 diabetes with hyperglycemia. Hypertension. Hypomagnesemia. Obesity Time spent for discharge: 35 minutes Core Measure Documentation - Palliative Care Palliative Care/ Comfort Measures: Not Applicable - Core Measures Any of the following diagnoses?: none Exam - Physical Exam Narrative exam: GENERAL: Well-developed well-nourished. In no acute distress. HEENT: Normocephalic. Atraumatic. NECK: Supple. CHEST/LUNGS: CTAB on room air HEART/CARDIOVASCULAR: RRR. No murmur, rubs or gallops appreciated. ABDOMEN: +BS. NT/ND. SKIN: No rashes noted. NEURO: No focal motor deficit. Follows all commands. MUSCULOSKELETAL: No joint effusion EXTREMITIES: No cyanosis, clubbing or edema. PSYCH: Cooperative. - Constitutional Vitals: Temp Pulse Resp BP Pulse Ox 98.5 F 66 16 117/64 97 02/16/22 08:00 02/16/22 11:47 02/16/22 04:12 02/16/22 11:47 02/16/22 11:47 Plan Care Plan Goals: Please make sure to establish care with the information provided to you for a primary care doctor. Also make sure to schedule an appointment with the consultant dietitian Dr. Koehler. Make sure to take all medications as prescribed to you. Follow up with: JAN KOEHLER MD [Staff Physician] - 10 Days JESSICA COREA MD [Staff Physician] - 7 Days Prescriptions: Insulin Glargine,Hum.rec.anlog [Basaglar Kwikpen U-100] 100 unit SQ QHS 30 Days #900 units RX: Pen Needle, Diabetic [Comfort Touch Pen Needle] 1 each MC QHS 30 Days #100 each RX: Metoprolol [Lopressor TAB] 12.5 mg PO BID 30 Days #30 tablet
--- NOTE | 2022-02-16 13:52 | Progress Note ---
Assessment and Plan - Patient Problems (1) Diabetes Current Visit: Yes Status: Acute (2) Diastolic CHF Current Visit: Yes Status: Acute Qualifiers: Heart failure chronicity: acute Qualified Code(s): I50.31 - Acute diastolic (congestive) heart failure (3) HTN (hypertension) Current Visit: Yes Status: Acute Qualifiers: Hypertension type: primary hypertension Qualified Code(s): I10 - Essential (primary) hypertension (4) Obesity hypoventilation syndrome Current Visit: Yes Status: Acute (5) SVT (supraventricular tachycardia) Current Visit: Yes Status: Acute Subjective Date of service: 02/16/22 Principal diagnosis: SVT Objective Vital Signs - 12hr 02/16/22 02/16/22 02/16/22 04:12 07:57 08:00 Temperature 97.7 F 98.5 F Pulse Rate 57 L 56 L Respiratory 16 Rate Blood Pressure 123/59 92/49 O2 Sat by Pulse 100 97 Oximetry 02/16/22 02/16/22 02/16/22 10:00 10:29 11:47 Temperature Pulse Rate 66 Respiratory Rate Blood Pressure 117/64 O2 Sat by Pulse 97 97 97 Oximetry CBC and BMP: 02/15/22 04:05 02/15/22 04:05 Abnormal lab findings: Abnormal Labs 02/14/22 02/14/22 02/14/22 10:08 10:08 10:08 RDW 12.6 L [place] % (Auto) Seg Neutrophils % 76.2 H VBG pH 7.275 L Glucose 364 H POC Glucose Calcium 8.1 L Magnesium Total Protein 6.2 L Albumin 3.4 L 02/14/22 02/15/22 02/15/22 10:08 04:05 04:05 RDW 12.8 L [place] % (Auto) 9.9 H Seg Neutrophils % VBG pH Glucose 241 H POC Glucose Calcium Magnesium 1.60 L Total Protein Albumin 3.4 L 02/15/22 02/15/22 02/15/22 07:40 11:35 16:36 RDW [place] % (Auto) Seg Neutrophils % VBG pH Glucose POC Glucose 180 H 213 H 215 H Calcium Magnesium Total Protein Albumin 02/15/22 02/16/22 02/16/22 21:19 07:20 12:04 RDW [place] % (Auto) Seg Neutrophils % VBG pH Glucose POC Glucose 221 H 154 H 159 H Calcium Magnesium Total Protein Albumin
[2022-02-16 16:24] VITALS: BP 115/54
== END 2022-02-16 18:10 | disposition home or self-care (01) | DRG 308 ==
LOC: ED 09:16 → CC1 15:57 → 4A 02-15 00:39
PROVIDERS: ADMIT Internal Medicine; ATTEND Student in an Organized Health Care Education/Training Program
DX: I47.1 Supraventricular tachycardia (principal); I50.31 Acute diastolic (congestive) heart failure; E66.2 Morbid (severe) obesity with alveolar hypoventilation; Z68.45 Body mass index [BMI] 70 or greater, adult; I11.0 Hypertensive heart disease with heart failure; E11.65 Type 2 diabetes mellitus with hyperglycemia; E88.81 Metabolic syndrome and other insulin resistance; Z79.4 Long term (current) use of insulin; Z83.3 Family history of diabetes mellitus; Z82.49 Family history of ischemic heart disease and other diseases of the circulatory system
CPT/HCPCS: 36415; 71045; 80053; 82010; 82805; 82962; 83735; 83880; 84439; 84443; 84484; 85025; 93005; 93306; G0378; J7060; Q9967; C8929; J0153; J0282; J1815; J2405; J3475; J7030